=== PATIENT | female | born 1995 | race Two or more races ===

== ENCOUNTER 2024-01-02 06:32 | Day surgery (SDC) | payer OTHER ==
[2023-12-26 09:54] LABS: HEMATOCRIT 40.5 % (36.0-45.00); HEMOGLOBIN 13.4 g/dL (12.0-15.00); MEAN CELL VOLUME 79.2 fL (80.00-100.00); MEAN CORPUSCULAR HEMOGLOBIN 26.3 pg (27.00-32.0); MEAN CORPUSCULAR HGB CONC 33.2 g/dl (32.0-36.0); PLATELET COUNT 234 K/uL (150-450); RED BLOOD COUNT 5.11 M/uL (4.00-6.00); RED CELL DISTRIBUTION WIDTH 13.7 % (11.5-14.5)
[2023-12-26 09:59] LABS: URINE APPEARANCE Clear; URINE BILIRRUBIN Negative (NEGATIVE); URINE BLOOD Negative; URINE COLOR Yellow; URINE GLUCOSE Negative (NEGATIVE); URINE LEUKOCYTE Negative; URINE NITRATE Negative; URINE PROTEIN Negative (NEGATIVE); URINE UROBILINOGEN 0.2 E.U./dl
[2023-12-26 10:00] LABS: URINE BACTERIA 726.9 uL (0.0-1933); URINE EPITHELIAL CELLS 25.3 uL (0.0-38.8); URINE RBC 6.6 uL (0.0-20.8); URINE WBC 4.3 uL (0.0-23.2)
[2023-12-26 10:21] LABS: INR 1.09; PARTIAL THROMBOPLASTIN TIME 31.9 SECONDS (22.0-34.0); PROTHROMBIN TIME 11.4 SECONDS (9.0-11.5)
[2023-12-26 10:26] LABS: ALBUMIN 4.3 gm/dL (3.4-5.0); CALCIUM 9.4 mg/dL (8.5-10.1); CREATININE SERUM 0.68 mg/dL (0.55-1.02); GFR 103.03; PHOSPHOROUS 3.5 mg/dL (2.5-4.9); POTASSIUM 4.36 mEq/L (3.5-5.1)
[~2024-01-02 06:32] MED LIST: ATIVAN0.5 M1 PO; EFFEXOR XR37.5 MG PO
[2024-01-02] MEDS ORDERED: LIDOCAINE HCL/EPINEPHRINE 20 ML VIAL IJ ONE ×2 (10:15→11:30)
[2024-01-02] MEDS ORDERED: CEPHALEXIN500 M1 PO (11:15)
[2024-01-02] MEDS ORDERED: OXYMETAZOLINE HCL 15 ML NASAL DROPS NASAL ONE (11:30)
[2024-01-02] MEDS ORDERED: CEFAZOLIN SODIUM 1,000 MG VIAL IV ONE (11:30)
== END 2024-01-02 13:30 | disposition home or self-care (01) ==
LOC: CIR.AMB 06:32
PROVIDERS: ATTEND Otolaryngology Otology & Neurotology
DX: J34.2 Deviated nasal septum (principal); J34.3 Hypertrophy of nasal turbinates; Z20.822 Contact with and (suspected) exposure to COVID-19